=== PATIENT | female | born 1995 | race Caucasian/White ===

== ENCOUNTER → 2020-10-15 | Outpatient (REF) | payer BC, MEDICAID ==
[2020-10-15 12:56] LABS: FREE T4 1.06 NG/DL (0.76-1.46)
[2020-10-15 12:58] LABS: FOLLICLE STIMULATING HORMONE 36.3 mIU/mL
[2020-10-15 13:05] LABS: HEMOGLOBIN A1c 5.3 %
[2020-10-15 13:37] LABS: HIV 1&2 SCREEN CENTAUR NEGATIVE (NEGATIVE)
== END ==
LOC: M LABDRAWC 11:15
PROVIDERS: ATTEND Obstetrics & Gynecology
DX: Z11.3 Encounter for screening for infections with a predominantly sexual mode of transmission (principal); E28.39 Other primary ovarian failure